=== PATIENT | female | born 1950 | race Hispanic/Latino ===

== ENCOUNTER 2019-04-15 05:41 | Day surgery (SDC) | payer OTHER ==
[~2019-04-15] VITALS: Ht 156.2 cm; Wt 58.1 kg
[~2019-04-15 05:41] MED LIST: ALPR0.255 PO; BISA5TAB12 PO; CALC-1009 PO; CLOB15CR5 TP; LEVO50TA11 PO; MELA1TAB21 PO; METF-444 PO; OMEP-272 PO; PIME30CR TP; SIMV-43 PO; WHEA1POW2 PO
[2019-04-15] MEDS ORDERED: SODIUM CHLORIDE 0.9% 1000ML 1,000 ML IV ONE (06:11)
[2019-04-15 07:07] VITALS: BP 134/69
[2019-04-15] MEDS ORDERED: PROPOFOL 10 MG/ML 20ML VIAL IV ONE (10:28)
[2019-04-15 10:48] VITALS: BP 125/82
[2019-04-15 10:53] VITALS: BP 118/60
[2019-04-15 10:58] VITALS: BP 124/78
[2019-04-15 11:03] VITALS: BP 128/74
== END 2019-04-15 11:18 | disposition home or self-care (01) ==
LOC: ENDO 05:41 → DAH 05:41 → EDSTATUS 06:30 → ENDO 11:18
PROVIDERS: ATTEND Internal Medicine
DX: K59.04 Chronic idiopathic constipation (principal); K63.5 Polyp of colon; K57.30 Diverticulosis of large intestine without perforation or abscess without bleeding; K64.0 First degree hemorrhoids; E11.9 Type 2 diabetes mellitus without complications; E03.9 Hypothyroidism, unspecified; E78.5 Hyperlipidemia, unspecified; F41.9 Anxiety disorder, unspecified; M19.90 Unspecified osteoarthritis, unspecified site; M81.0 Age-related osteoporosis without current pathological fracture; Z90.49 Acquired absence of other specified parts of digestive tract; Z79.899 Other long term (current) drug therapy
CPT/HCPCS: 45380; 82948 ×2; 88305; A4215; A4221; A4222; A4223; A4606; A4615; A4663; J2704; J7030